=== PATIENT | female | born 1950 | race Caucasian/White ===

== ENCOUNTER 2021-12-05 14:20 | Emergency (ER) | payer BC, OTHER ==
[~2021-12-05] VITALS: Ht 157.5 cm; Wt 108.9 kg
[2021-12-05 15:06] LABS: Basophils # (auto) 0 10 ^3/uL (0-0.2); Basophils % (auto) 0.8 % (0.0-2.0); Eosinophils # (auto) 0.2 10 ^3/uL (0-0.8); Eosinophils % (auto) 3.6 % (0.0-7.0); Hematocrit 39.9 % (36.0-46.0); Hemoglobin 12.9 g/dL (12.2-16.2); Lymphocytes # (auto) 1.2 10 ^3/uL (0.4-5.4); Lymphocytes % (auto) 26.6 % (10.0-50.0); Mean Corpuscular Hemoglobin 32.6 pg (28.0-32.0); Mean Corpuscular Hgb Conc. 32.3 g/dL (32.0-36.0); Mean Corpuscular Volume 100.7 fL (80.0-100.0); Monocytes # (auto) 0.6 10 ^3/uL (0-1.3); Monocytes % (auto) 14.3 % (0.0-12.0); Neutrophils # (auto) 2.4 10 ^3/uL (1.6-8.6); Neutrophils % (auto) 54.7 % (37.0-80.0); Red Blood Cells 3.96 10^6/uL (4.0-5.20); Red Cell Distribution Width 14.4 % (11.8-14.3); White Blood Cell 4.4 10^3/uL (4.4-10.8)
[2021-12-05 15:23] LABS: Albumin 3.4 g/dL (3.4-5.0); BUN/Creatinine Ratio 11.3; Calcium 9.1 mg/dL (8.5-10.1)
[2021-12-05 15:25] LABS: Bilirubin, Total 0.2 mg/dL (0.2-1.0); Total Protein 7.3 g/dL (6.4-8.2)
[2021-12-05 16:30] LABS: Urine Bacteria NONE SEEN /hpf (None Seen); Urine Blood Negative /uL (Negative); Urine Specific Gravity 1.009 (1.001-1.035); Urine WBC 2 /hpf (0 - 5)
[2021-12-05] MEDS ORDERED: ESMOLOL HCL-NS 10MG/ML 250 ML IV SCH (19:45)
[2021-12-05] MEDS ORDERED: ESMOLOL HCL (10MG/ML) 10 ML VIAL IV ONE (19:45)
[2021-12-05 21:22] VITALS: BP 101/64
== END 2021-12-05 21:51 | disposition short-term general hospital (02) ==
LOC: ER 14:20
DX: I71.2 Thoracic aortic aneurysm, without rupture (principal); N20.0 Calculus of kidney; K42.9 Umbilical hernia without obstruction or gangrene; I10 Essential (primary) hypertension; Z90.710 Acquired absence of both cervix and uterus
CPT/HCPCS: 36415; 71045; 74176; 80053; 81001; 83880; 84484; 85025; 87086; 93005; 96365

== ENCOUNTER 2022-08-01 07:43 | Emergency (ER) | payer BC ==
[~2022-08-01] VITALS: Ht 157.5 cm; Wt 113.0 kg
[2022-08-01 10:51] VITALS: BP 127/66
== END 2022-08-01 10:57 | disposition home or self-care (01) ==
LOC: ER 07:43 → EDBD 07:43 → ER 10:54
DX: M54.2 Cervicalgia (principal); M79.18 Myalgia, other site; I10 Essential (primary) hypertension; Z90.710 Acquired absence of both cervix and uterus
CPT/HCPCS: 70450; 72125; 72192; 73700